=== PATIENT | male | born 1995 | race Two or more races ===

== ENCOUNTER 2021-07-04 20:06 | Emergency (ER) | payer MEDICAID ==
[~2021-07-04] VITALS: Ht 185.4 cm; Wt 103.0 kg
[2021-07-04 20:23] VITALS: BP 123/91
== END 2021-07-05 00:09 | disposition home or self-care (01) ==
LOC: ED 20:11
DX: R51.9 Headache, unspecified (principal); R53.1 Weakness; J06.9 Acute upper respiratory infection, unspecified; Z20.822 Contact with and (suspected) exposure to COVID-19
CPT/HCPCS: 99283; U0003; U0005